=== PATIENT | female | born 1995 | race Caucasian/White ===

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

== ENCOUNTER → 2018-01-30 | Outpatient (CLI) | payer BC ==
--- NOTE | 2018-01-30 22:20 | MR ---
EXAMINATION TYPE: MR brain wo/w con DATE OF EXAM: 01/30/2018 COMPARISON: NONE HISTORY: Headaches, Dizzy, Blurry Vision, Gadavist 8.5 CONTRAST: Performed utilizing 8.5 mL intravenous Gadavist gadolinium contrast. TECHNIQUE: Multiplanar, multiecho imaging on a 3.0 Lucy magnet is performed through the brain. Stud y is performed within 24 hours of arrival to the hospital. The craniovertebral junction is normal. The pituitary is normal. Diffusion-weighted imaging is performed. No abnormal hyperintensity is present to suggest an acute i ntracranial infarct or acute ischemic change. Signal through the brain is normal. There are normal vascular flow voids present. Solitary area of hyperintensity within the deep white matter is present within the left centrum semio shashank, series 501 image 21. No abnormal enhancement is evident. Ventricles and sulci are appropriate for the patient age. There is opacification of the right sphenoid sinus. Some posterior right ethmoid air cell opacificati on is present. Remaining paranasal sinuses are clear. Mastoid air cells are clear. IMPRESSIONS: 1. MRI brain pre and postcontrast is normal. 2. Opacification of the right sphenoid sinus. Correlate for sphenoid sinusitis.
== END | disposition home or self-care (01) ==
LOC: RADMRIMAIN 16:58
PROVIDERS: ATTEND Psychiatry & Neurology Neurology
DX: D43.2 Neoplasm of uncertain behavior of brain, unspecified (principal)
CPT/HCPCS: 70553; A9581